=== PATIENT | female | born 1980 | race Caucasian/White ===

== ENCOUNTER 2017-02-26 18:04 | Inpatient (IN) | payer OTHER ==
[~2017-02-26] VITALS: Ht 167.6 cm; Wt 82.0 kg
[2017-02-26] MEDS ORDERED: OXYTOCIN 30U/ 0.9% NaCL 500ML 500 ML IV ONE (18:21)
[2017-02-26] MEDS ORDERED: LACTATED RINGERS 1,000 ML IV SCH (18:21)
[2017-02-26] MEDS ORDERED: NEWBORN KIT ONE (18:29)
[2017-02-26] MEDS ORDERED: OXYTOCIN 30U/ 0.9% NaCL 500ML 0 ML ONE (18:29)
[2017-02-26] MEDS ORDERED: MISOPROSTOL 200 MCG TABLET ONE (18:29)
[2017-02-26] MEDS ORDERED: LIDOCAINE 1%, 20ML ONE (18:29)
[2017-02-26] MEDS ORDERED: FENTANYL PF 100 MCG/2ML IV PRN (18:30)
[2017-02-26] MEDS ORDERED: FENTANYL PF 100 MCG/2ML IVPush PRN (18:30)
[2017-02-26] MEDS ORDERED: ONDANSETRON 2MG/ML, 2ML IVPush PRN (18:30)
[2017-02-26] MEDS ORDERED: VALA500T4 PO (18:50)
[2017-02-26] MEDS ORDERED: PREN1TAB25 PO (18:50)
[2017-02-26] MEDS: OXYTOCIN 30U/ 0.9% NaCL 500ML 500 ML IV SCH (20:04)
[2017-02-26] MEDS ORDERED: MEASLES,MUMPS&RUBELLA VACC/PF 0.5 ML SQ PRN (20:30)
[2017-02-26] MEDS ORDERED: IBUPROFEN 600 MG TABLET PO PRN (20:30)
[2017-02-26] MEDS ORDERED: MISOPROSTOL 200 MCG TABLET PR PRN (20:30)
[2017-02-26] MEDS ORDERED: HYDROcodone/APAP 5/325 TABLET PO PRN ×2 (20:30)
[2017-02-26] MEDS ORDERED: CALCIUM CARBONATE 500 MG TAB.CHEW PO PRN (20:30)
[2017-02-26] MEDS ORDERED: DIPH,PERTUSS(ACELL),TET VAC/PF NC IM-VACC PRN (20:30)
[2017-02-26] MEDS ORDERED: ONDANSETRON 2MG/ML, 2ML IV PRN (20:30)
[2017-02-26] MEDS ORDERED: DOCUSATE 100 MG CAPSULE PO PRN (20:30)
[2017-02-26 22:10] VITALS: BP 134/82
[2017-02-27 01:10] VITALS: BP 128/82
[2017-02-27 04:45] VITALS: BP 135/82
[2017-02-27] MEDS: OXYTOCIN 30U/ 0.9% NaCL 500ML 500 ML IV SCH ×2 (06:04→16:04)
[2017-02-27 07:10] VITALS: BP 118/79
[2017-02-27] MEDS ORDERED: PRENATAL VIT/IRON/FA 1 EACH TABLET ONE (07:35)
[2017-02-27] MEDS ORDERED: PRENATAL VIT/IRON/FA 1 EACH TABLET PO SCH (09:00)
[2017-02-27 11:40] VITALS: BP 114/73
[2017-02-27] MEDS ORDERED: HYDR-3240 PO (16:13)
[2017-02-27] MEDS ORDERED: IBUP800T PO (16:13)
[2017-02-27] MEDS ORDERED: DOCU-30 PO (16:13)
== END 2017-02-27 17:45 | disposition home or self-care (01) | DRG 774 ==
LOC: LDOP 18:04 → LDIP 18:19 → 2NW 19:28
PROVIDERS: ADMIT Obstetrics & Gynecology; ATTEND Obstetrics & Gynecology
PROC: 0KQM0ZZ Repair Perineum Muscle, Open Approach (ICD-10-PCS; principal; 2017-02-26)
PROC: 10E0XZZ Delivery of Products of Conception, External Approach (ICD-10-PCS; 2017-02-26)
DX: O98.52 Other viral diseases complicating childbirth (principal); O70.1 Second degree perineal laceration during delivery; Z37.0 Single live birth; A60.00 Herpesviral infection of urogenital system, unspecified; J30.2 Other seasonal allergic rhinitis; Z3A.38 38 weeks gestation of pregnancy
CPT/HCPCS: 36415; 85025; 86850; 86900